=== PATIENT | female | born 1985 | race Caucasian/White ===

== ENCOUNTER 2019-01-01 00:44 | Emergency (ER) | payer OTHER ==
[~2019-01-01] VITALS: Ht 160 cm; Wt 65.8 kg
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
[2019-01-01] MEDS ORDERED: Tetanus/Diptheria/Pertussis IM ONE (01:00)
[2019-01-01] MEDS ORDERED: Tylenol #3 tab (300mg/30mg) ORAL ONE (01:00)
[2019-01-01] MEDS ORDERED: SILVADENE20 GM TP (01:16)
[2019-01-01] MEDS ORDERED: ACETAMINOPHEN-1 EAC1 ORAL (01:16)
--- NOTE | 2019-01-01 01:29 | NUR ---
ER DISCHARGE NOTE: Patient is cleared to be discharged per ERMD, pt is aox4, on room air, with stable vital signs. pt was given dc and prescription instructions, pt was able to verbalize understanding, pt id band REMOVED. pt wheelchair assist to private vehicle. pt accompanied by friend
[2019-01-01 01:30] VITALS: BP 135/81
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
== END 2019-01-01 01:30 | disposition home or self-care (01) ==
LOC: EMR 01:04
DX: T25.222A Burn of second degree of left foot, initial encounter (principal); T31.0 Burns involving less than 10% of body surface; Z23 Encounter for immunization; X12.XXXA Contact with other hot fluids, initial encounter; Y92.9 Unspecified place or not applicable
CPT/HCPCS: 90471; 90715; 99282